=== PATIENT | female | born 1990 | race Caucasian/White ===

== ENCOUNTER → 2017-09-25 | Outpatient (CLI) | payer BC ==
--- NOTE | 2017-09-25 08:08 | US ---
EXAMINATION TYPE: US abdomen complete DATE OF EXAM: 09/25/2017 COMPARISON: NONE CLINICAL HISTORY: Rt Upper Quad Pain, R10.11. Epigastric, RUQ pain radiating into RLQ for 6 months. I ntermittent nausea EXAM MEASUREMENTS: Liver Length: 13.9 cm Gallbladder Wall: 0.3 cm CBD: 0.2 cm Spleen: 12.2 cm Right Kidney: 10.8 x 4.7 x 5.0 cm Left Kidney: 10.5 x 5.5 x 4.1 cm Pancreas: visualized portions appear wnl Liver: appears wnl Gallbladder: no evidence of stones Evidence for sonographic Phillip's sign: no CBD: wnl Spleen: wnl Right Kidney: possible dense echogenic area upper pole = 0.8cm, no evidence of shadowing Left Kidney: no evidence of hydronephrosis Upper IVC: wnl Abd Aorta: wnl The liver is homogenous. The intrahepatic portion of the IVC and proximal abdominal aorta are within normal limits. There is no evidence of cholelithiasis. Common bile duct is unremarkable. The visu alized portions of the pancreas are homogenous. The spleen is unremarkable. Kidneys are symmetric a nd free of hydronephrosis. IMPRESSION: 1. Probable nonobstructing calculus right kidney.
== END | disposition home or self-care (01) ==
LOC: RADUSWWP 06:54
PROVIDERS: ATTEND Family Medicine
DX: R10.11 Right upper quadrant pain (principal)
CPT/HCPCS: 76700

== ENCOUNTER → 2021-05-22 | Outpatient (CLI) | payer BC ==
--- NOTE | 2021-05-22 10:32 | NM ---
EXAMINATION TYPE: NM hepatobiliary w EF DATE OF EXAM: 05/22/2021 COMPARISON: Ultrasound 09/25/2017 HISTORY: Right upper quadrant pain TECHNIQUE: After the intravenous administration of 4.3 mCi Tc 99m Mebrofenin hepatobiliary scintigrap hy is performed. Immediate images post injection. FINDINGS: There is satisfactory initial accumulation of tracer by the liver. The gallbladder is visualized wit hin 6 minutes. The small bowel activity is noted within 32 minutes. At one hour 8 ounces of oral en sure plus is given to mimic CCK and gallbladder ejection fraction is calculated at 57 %, in the piper l range. Therefore there is no scintigraphic evidence of cystic or common bile duct obstruction to s uggest acute cholecystitis or gallbladder dyskinesia. IMPRESSION: Exam is within normal limits.
== END | disposition home or self-care (01) ==
LOC: RADNMMAIN 06:36
PROVIDERS: ATTEND Family Medicine
DX: R10.11 Right upper quadrant pain (principal)
CPT/HCPCS: 78226; A9537

== ENCOUNTER 2022-04-15 07:25 | Day surgery (SDC) | payer BC ==
[2022-04-14 09:55] VITALS: BMI 32.9
[~2022-04-15 07:25] MED LIST: LACTATED RINGERS 1,000 ML IV SCH
[2022-04-15 07:54] VITALS: TEMP 97.8
[2022-04-15] MEDS ORDERED: PROPOFOL 10 MG/ML 20 ML VIAL IV ONE (08:49)
[2022-04-15] MEDS ORDERED: LIDOCAINE 2% INJ 20 MG/ML (2 ML VIAL) ONE (08:49)
[2022-04-15] MEDS ORDERED: MIDAZOLAM 2 MG/2 ML VIAL ONE (08:49)
--- NOTE | 2022-04-15 08:59 | P.PCN ---
Date of Procedure: 04/15/22 Procedure(s) Performed: BRIEF HISTORY: Patient is a 32-year-old, pleasant, white female scheduled for an upper endoscopy as a part of evaluation of intermittent episodes of right upper quadrant abdominal pain for the last 2 years duration. She had ulcerative abdomen and HIDA scan was unremarkable. Recently was started on omeprazole 20 mg daily and heartburn retroflexion continues to have a right upper quadrant abdominal pain and hence scheduled for an upper endoscopy to evaluate further. PROCEDURE PERFORMED: Esophagogastroduodenoscopy with biopsy. PREOPERATIVE DIAGNOSIS: Intermittent episodes of right upper quadrant abdominal pain of 2 years duration. IV sedation per anesthesia. PROCEDURE: After informed consent was obtained, the patient was brought into the endoscopy unit. IV sedation was administered by Anesthesia under continuous monitoring. Initially the Olympus GIF-140 video endoscope was inserted into the mouth. Esophagus intubated without any difficulty. It was gradually advanced into the stomach and duodenum and carefully examined. The bulb and the second part of the duodenum appeared normal. Since of the duodenum were done to rule out celiac disease. The scope at this time was withdrawn to the stomach, adequately insufflated with air, and upon careful examination, mucosa of the antrum, gastritis with mottling of the mucosa and biopsies were done from this area. The body, cardia and the fundus appeared normal. The scope was then withdrawn into the esophagus. The GE junction was located at 40 cm from the incisors. There was once a fissure erosions at the GE junction consistent with LA grade a reflux esophagitis. Rest of the esophagus appeared normal, biopsies were done from the distal esophagus and the patient tolerated the procedure well. IMPRESSION: 1. Mild antral Gastritis. 2. LA grade A reflux esophagitis. RECOMMENDATIONS: The findings of this examination were discussed with the patient as well as a family. She was advised to follow with the biopsy results. Continue with omeprazole 20 mg daily and follow antireflux measures..
[2022-04-15 09:20] VITALS: BP 126/70; PULSE 78; RESP 18
== END 2022-04-15 09:37 | disposition home or self-care (01) ==
LOC: ORWHC2ENDO 07:25
PROVIDERS: ATTEND Internal Medicine Gastroenterology
DX: K21.00 Gastro-esophageal reflux disease with esophagitis, without bleeding (principal); K29.50 Unspecified chronic gastritis without bleeding
CPT/HCPCS: 81025; 88305; 43239; J2250; J2704; J2001

== ENCOUNTER 2022-10-06 02:10 | Emergency (ER) | payer BC ==
[2022-10-06 02:16] VITALS: BP 158/104; PULSE 92; RESP 18; TEMP 98
[2022-10-06] MEDS ORDERED: HYDROmorphone 0.5 MG/0.5 ML SYRINGE IVP STA (02:25)
[2022-10-06] MEDS ORDERED: ONDANSETRON 4 MG/2 ML VIAL IVP STA (02:25)
[2022-10-06] MEDS ORDERED: SODIUM CHLORIDE 0.9% 1,000 ML IV STA (02:25)
[2022-10-06] MEDS ORDERED: KETOROLAC 15 MG/ML 1 ML VIAL IVP STA (02:25)
--- NOTE | 2022-10-06 02:33 | ED ---
General Adult HPI - General Chief complaint: Abdominal Pain Stated complaint: Right side abdominal Pain Time Seen by Provider: 10/06/22 02:22 Source: patient, RN notes reviewed, old records reviewed Mode of arrival: ambulatory Limitations: no limitations - History of Present Illness Initial comments: 32-year-old female who presents for evaluation of sudden onset right-sided upper abdominal pain and flank pain. Patient has remote history of kidney stone. She denies any preceding symptoms. She's had nausea associated with the pain. Pain is right upper abdominal and right flank. - Related Data Home Medications Medication Instructions Recorded Confirmed Etonogestrel [Nexplanon] 68 mg SQ DIRECTED 04/14/22 04/15/22 Hyoscyamine Sulfate [Levsin] 0.125 mg PO TID 04/14/22 04/15/22 Omeprazole [PriLOSEC] 20 mg PO AC-BRKFST 04/14/22 04/15/22 Rimegepant Sulfate [Nurtec Odt] 75 mg PO DAILY PRN 04/14/22 04/15/22 Previous Rx's Medication Instructions Recorded Ibuprofen [Motrin] 600 mg PO Q8HR PRN #24 tab 10/06/22 Ondansetron Odt [Zofran Odt] 4 mg PO Q8HR PRN #10 tab 10/06/22 Tamsulosin [Flomax] 0.4 mg PO DAILY 5 Days #5 cap 10/06/22 Allergies Allergy/AdvReac Type Severity Reaction Status Date / Time codeine Allergy N/V Verified 10/06/22 02:13 Review of Systems ROS Statement: Those systems with pertinent positive or pertinent negative responses have been documented in the HPI. ROS Other: All systems not noted in ROS Statement are negative. Past Medical History Past Medical History: Asthma, GERD/Reflux Additional Past Medical History / Comment(s): IBS SYMPTOMS. MIGRAINES History of Any Multi-Drug Resistant Organisms: None Reported Past Surgical History: Tonsillectomy Additional Past Surgical History / Comment(s): LT CATARACT REMOVED WITH LENS IMPLANT Past Anesthesia/Blood Transfusion Reactions: No Reported Reaction Past Psychological History: No Psychological Hx Reported Smoking Status: Former smoker Past Alcohol Use History: None Reported Past Drug Use History: None Reported - Past Family History Mother Family Medical History: Cancer General Exam Limitations: no limitations General appearance: alert, in no apparent distress Head exam: Present: atraumatic, normocephalic Eye exam: Present: normal appearance, PERRL ENT exam: Present: normal exam Neck exam: Present: normal inspection. Absent: tenderness, meningismus Respiratory exam: Present: normal lung sounds bilaterally. Absent: respiratory distress, wheezes Cardiovascular Exam: Present: regular rate, normal rhythm GI/Abdominal exam: Present: soft. Absent: distended, tenderness, guarding, rebound Extremities exam: Present: normal inspection, normal capillary refill. Absent: pedal edema, calf tenderness Back exam: Present: normal inspection. Absent: CVA tenderness (R), CVA tenderness (L) Neurological exam: Present: alert, oriented X3 Psychiatric exam: Present: normal affect, normal mood Skin exam: Present: warm, dry, intact, normal color Course Vital Signs 10/06/22 02:13 Temperature 98 F Pulse Rate 92 Respiratory 18 Rate Blood Pressure 158/104 O2 Sat by Pulse 98 Oximetry Medical Decision Making - Medical Decision Making Was pt. sent in by a medical professional or institution (, PA, LABEL DESIGNER, urgent care, hospital, or half-way...) When possible be specific @ -No Did you speak to anyone other than the patient for history (EMS, parent, family, police, friend...)? What history was obtained from this source @ -No Did you review nursing and triage notes (agree or disagree)? Why? @ -I reviewed and agree with nursing and triage notes Were old charts reviewed (outside hosp., previous admission, EMS record, old EKG, old radiological studies, urgent care reports/EKG's, half-way records)? Report findings @ -Reviewed previous ultrasound and HIDA scan results Differential Diagnosis (chest pain, altered mental status, abdominal pain women, abdominal pain men, vaginal bleeding, weakness, fever, dyspnea, syncope, headache, dizziness, GI bleed, back pain, seizure, CVA, palpatations, mental health, musculoskeletal)? @ -Differential Abdominal Pain Women: Appendicitis, Cholecystitis, diverticulosis, ischemic bowel, pancreatitis, hep atitis, UTI, gastroenteritis, AAA, incarcerated hernia, bowel obstruction, constipation, inflammatory bowel, hepatitis, peptic ulcer disease, splenic infarction, perforated viscus, vulvitis, ovarian torsion, PID, kidney stone, placenta abruption, this is not meant to be an all-inclusive list ] EKG interpreted by me (3pts min.). @ -As above X-rays interpreted by me (1pt min.). @ -None done CT interpreted by me (1pt min.). @ -CT showing right-sided hydronephrosis and obstructing kidney stone at the right UVJ U/S interpreted by me (1pt. min.). @ -None done What testing was considered but not performed or refused? (CT, X-rays, U/S, labs)? Why? @ -None What meds were considered but not given or refused? Why? @ -None Did you discuss the management of the patient with other professionals (professionals i.e. , PA, LABEL DESIGNER, lab, RT, psych nurse, social service assistant, catastrophe claims supervisor, teacher, probation officer, pillowcase cutter)? Give summary @ -No Was smoking cessation discussed for >3mins.? @ -No Was critical care preformed (if so, how long)? @ -No Were there social determinants of health that impacted care today? How? (Homelessness, low income, unemployed, alcoholism, drug addiction, transportation, low edu. Level, literacy, decrease access to med. care, [facility], rehab)? @ -No Was there de-escalation of care discussed even if they declined (Discuss DNR or withdrawal of care, Hospice)? DNR status @ -No What co-morbidities impacted this encounter? (DM, HTN, Smoking, COPD, CAD, Cancer, CVA, ARF, Chemo, Hep., AIDS, mental health diagnosis, sleep apnea, morbid obesity)? @ -None Was patient admitted / discharged? Hospital course, mention meds given and route, prescriptions, significant lab abnormalities, going to OR and other pertinent info. @ -32-year-old female with sudden onset right sided abdominal pain and flank pain. History suggestive of renal colic. Workup reveals normal CBC, normal CMP, urinalysis shows [address] imaging does confirm obstructing kidney stone on the right. Patient given a urine strainer. Her symptoms are controlled well in the emergency department. She is prescribed Flomax, Zofran, Motrin. She's given urology follow-up. Undiagnosed new problem with uncertain prognosis? @ -No Drug Therapy requiring intensive monitoring for toxicity (Heparin, Nitro, Insulin, Cardizem)? @ -No Were any procedures done? @ -No Diagnosis/symptom? @ -[Obstructing renal stone Acute, or Chronic, or Acute on Chronic? @ -Acute Uncomplicated (without systemic symptoms) or Complicated (systemic symptoms)? @ -Uncomplicated Side effects of treatment? @ -No Exacerbation, Progression, or Severe Exacerbation? @ -No Poses a threat to life or bodily function? How? (Chest pain, USA, DC, pneumonia, PE, COPD, DKA, ARF, appy, cholecystitis, CVA, Diverticulitis, Homicidal, Luna icidal, threat to staff... and all critical care pts) @ -No - Lab Data Result diagrams: 10/06/22 02:10/06/22 02: Lab Results 10/06/22 10/06/22 10/06/22 Range/Units 02: 02: 02:31 WBC 8.2 (3.8-10.6) k/uL RBC 4.91 (3.80-5.40) m/uL Hgb 14.6 (11.4-16.0) gm/dL Hct 41.7 (34.0-46.0) % MCV 84.9 (80.0-100.0) fL MCH 29.7 (25.0-35.0) pg MCHC 34.9 (31.0-37.0) g/dL RDW 13.1 (11.5-15.5) % Plt Count 309 (150-450) k/uL MPV 7.8 Neutrophils % 50 % Lymphocytes % 36 % Monocytes % 8 % Eosinophils % 3 % Basophils % 0 % Neutrophils # 4.1 (1.3-7.7) k/uL Lymphocytes # 3.0 (1.0-4.8) k/uL Monocytes # 0.7 (0-1.0) k/uL Eosinophils # 0.2 (0-0.7) k/uL Basophils # 0.0 (0-0.2) k/uL Sodium (137-145) mmol/L Potassium (3.5-5.1) mmol/L Chloride (98-107) mmol/L Carbon Dioxide (22-30) mmol/L Anion Gap mmol/L BUN (7-17) mg/dL Creatinine (0.52-1.04) mg/dL Est GFR (CKD-EPI)AfAm (>60 ml/min/1.73 sqM) Est GFR (CKD-EPI)NonAf (>60 ml/min/1.73 sqM) Glucose (74-99) mg/dL Calcium (8.4-10.2) mg/dL Total Bilirubin (0.2-1.3) mg/dL AST (14-36) U/L ALT (4-34) U/L Alkaline Phosphatase (38-126) U/L Total Protein (6.3-8.2) g/dL Albumin (3.5-5.0) g/dL Lipase (23-300) U/L Urine Color Light Yellow Urine Appearance Clear (Clear) Urine pH 6.0 (5.0-8.0) Ur Specific [place] 1.009 (1.001-1.035) Urine Protein Negative (Negative) Urine Glucose (UA) Negative (Negative) Urine Ketones Negative (Negative) Urine Blood Small H (Negative) Urine Nitrite Negative (Negative) Urine Bilirubin Negative (Negative) Urine Urobilinogen <2.0 (<2.0) mg/dL Ur Leukocyte Esterase Negative (Negative) Urine RBC 8 H (0-5) /hpf Urine WBC 2 (0-5) /hpf Ur Squamous Epith Cells 2 (0-4) /hpf Urine Mucus Rare H (None) /hpf Urine HCG, Qual Not Detected (Not Detectd) 10/06/22 Range/Units 02:31 WBC (3.8-10.6) k/uL RBC (3.80-5.40) m/uL Hgb (11.4-16.0) gm/dL Hct (34.0-46.0) % MCV (80.0-100.0) fL MCH (25.0-35.0) pg MCHC (31.0-37.0) g/dL RDW (11.5-15.5) % Plt Count (150-450) k/uL MPV Neutrophils % % Lymphocytes % % Monocytes % % Eosinophils % % Basophils % % Neutrophils # (1.3-7.7) k/uL Lymphocytes # (1.0-4.8) k/uL Monocytes # (0-1.0) k/uL Eosinophils # (0-0.7) k/uL Basophils # (0-0.2) k/uL Sodium 140 (137-145) mmol/L Potassium 4.1 (3.5-5.1) mmol/L Chloride 106 (98-107) mmol/L Carbon Dioxide 25 (22-30) mmol/L Anion Gap 9 mmol/L BUN 9 (7-17) mg/dL Creatinine 0.71 (0.52-1.04) mg/dL Est GFR (CKD-EPI)AfAm >90 (>60 ml/min/1.73 sqM) Est GFR (CKD-EPI)NonAf >90 (>60 ml/min/1.73 sqM) Glucose 104 H (74-99) mg/dL Calcium 9.2 (8.4-10.2) mg/dL Total Bilirubin 0.3 (0.2-1.3) mg/dL AST 21 (14-36) U/L ALT 35 H (4-34) U/L Alkaline Phosphatase 69 (38-126) U/L Total Protein 7.2 (6.3-8.2) g/dL Albumin 4.1 (3.5-5.0) g/dL Lipase 168 (23-300) U/L Urine Color Urine Appearance (Clear) Urine pH (5.0-8.0) Ur Specific [place] (1.001-1.035) Urine Protein (Negative) Urine Glucose (UA) (Negative) Urine Ketones (Negative) Urine Blood (Negative) Urine Nitrite (Negative) Urine Bilirubin (Negative) Urine Urobilinogen (<2.0) mg/dL Ur Leukocyte Esterase (Negative) Urine RBC (0-5) /hpf Urine WBC (0-5) /hpf Ur Squamous Epith Cells (0-4) /hpf Urine Mucus (None) /hpf Urine HCG, Qual (Not Detectd) Disposition Clinical Impression: Calculus of kidney Disposition: HOME SELF-CARE Condition: Good Instructions (If sedation given, give patient instructions): Kidney Stones (ED), How to Strain Your Urine (ED) Prescriptions: Tamsulosin [Flomax] 0.4 mg PO DAILY 5 Days #5 cap Ibuprofen [Motrin] 600 mg PO Q8HR PRN #24 tab PRN Reason: Pain Ondansetron Odt [Zofran Odt] 4 mg PO Q8HR PRN #10 tab PRN Reason: Vomiting Is patient prescribed a controlled substance at d/c from ED?: No Referrals: Marie Fragoso III, MD [Primary Care Provider] - 1-2 days Horace Damon MD [STAFF PHYSICIAN] - 1-2 days Time of Disposition: 03:44
[2022-10-06 02:50] LABS: Appearance,Urine Clear (Clear); Bilirubin,Urine Negative (Negative); Blood,Urine Small (Negative); Color,Urine Light Yellow; Glucose,Urine (UA) Negative (Negative); Ketones,Urine Negative (Negative); Leukocyte Esterase,Urine Negative (Negative); Mucus,Urine Rare /hpf; Nitrite,Urine Negative (Negative); Protein,Urine Negative (Negative); RBC,Urine 8 /hpf (0-5); Specific Gravity,Urine 1.009 (1.001-1.035); Squamous Epithelial Cell,Urine 2 /hpf (0-4); Urobilinogen,Urine <2.0 mg/dL (<2.0); WBC,Urine 2 /hpf (0-5)
[2022-10-06 03:27] LABS: Basophils % (A) 0 %; Eosinophils # (A) 0.2 k/uL (0-0.7); Eosinophils % (A) 3 %; HCT 41.7 % (34.0-46.0); HGB 14.6 gm/dL (11.4-16.0); Lymphocytes % (A) 36 %; MCH 29.7 pg (25.0-35.0); MCHC 34.9 g/dL (31.0-37.0); MCV 84.9 fL (80.0-100.0); Mean Platelet Volume 7.8; Monocytes # (A) 0.7 k/uL (0-1.0); Monocytes % (A) 8 %; Neutrophils # (A) 4.1 k/uL (1.3-7.7); Neutrophils % (A) 50 %; Platelet Count 309 k/uL (150-450); RBC 4.91 m/uL (3.80-5.40); RDW 13.1 % (11.5-15.5); WBC 8.2 k/uL (3.8-10.6)
[2022-10-06 03:36] LABS: ALT 35 U/L (4-34); AST 21 U/L (14-36); African American GFR (CKD) >90 (>60 ml/min/1.73 sqM); Albumin 4.1 g/dL (3.5-5.0); Alkaline Phosphatase 69 U/L (38-126); Anion Gap 9 mmol/L; Blood Urea Nitrogen 9 mg/dL (7-17); Calcium 9.2 mg/dL (8.4-10.2); Carbon Dioxide 25 mmol/L (22-30); Chloride 106 mmol/L (98-107); Glucose 104 mg/dL (74-99); Lipase 168 U/L (23-300); Non-African American GFR(CKD) >90 (>60 ml/min/1.73 sqM); Potassium 4.1 mmol/L (3.5-5.1); Sodium 140 mmol/L (137-145); Total Bilirubin 0.3 mg/dL (0.2-1.3); Total Protein 7.2 g/dL (6.3-8.2)
--- NOTE | 2022-10-06 04:52 | CT ---
EXAM: CT Abdomen and Pelvis Without Intravenous Contrast CLINICAL HISTORY: rt flank pain TECHNIQUE: Axial computed tomography images of the abdomen and pelvis without intravenous contrast. CTDI is 15.5 mGy and DLP is 826.7 mGy-cm. This CT exam was performed using one or more of the following dose reduction techniques: automated exposure control, adjustment of the mA and/or kV according to patient size, and/or use of iterative reconstruction technique. COMPARISON: No relevant prior studies available. FINDINGS: Lung bases: Unremarkable. No mass. No consolidation. ABDOMEN: Liver: Unremarkable. Gallbladder and bile ducts: Unremarkable. No calcified stones. No ductal dilation. Pancreas: Unremarkable. No ductal dilation. Spleen: Unremarkable. No splenomegaly. Adrenals: Unremarkable. No mass. Kidneys and ureters: Mild right hydroureteronephrosis with 4 mm obstructing right UVJ calculus. Stomach and bowel: Unremarkable. No obstruction. No mucosal thickening. PELVIS: Appendix: No findings to suggest acute appendicitis. Bladder: Unremarkable. No stones. Reproductive: Unremarkable as visualized. ABDOMEN and PELVIS: Intraperitoneal space: Unremarkable. No free air. No significant fluid collection. Bones/joints: No acute fracture. No dislocation. Soft tissues: Unremarkable. Vasculature: Unremarkable. No abdominal aortic aneurysm. Lymph nodes: Unremarkable. No enlarged lymph nodes. IMPRESSION: Mild right hydroureteronephrosis with 4 mm obstructing right UVJ calculus.
== END 2022-10-06 05:30 | disposition home or self-care (01) ==
LOC: EC 02:10
DX: N13.2 Hydronephrosis with renal and ureteral calculous obstruction (principal); J45.909 Unspecified asthma, uncomplicated; K21.9 Gastro-esophageal reflux disease without esophagitis; Z88.5 Allergy status to narcotic agent; Z87.891 Personal history of nicotine dependence; Z79.899 Other long term (current) drug therapy
CPT/HCPCS: 36415; 80053; 83690; 85025; 81001; 81025; 74176; 99285; 96374; 96375 ×2; 96361; J2405; J1885; J1170

== ENCOUNTER 2023-09-24 15:09 | Inpatient (IN) | payer BC ==
[2023-09-24] MEDS ORDERED: miSOPROStoL 200 MCG TAB PO PRN (15:45)
[2023-09-24] MEDS ORDERED: OXYTOCIN 10 UNIT/ML 1 ML VIAL IM PRN (15:45)
[2023-09-24] MEDS ORDERED: TERBUTALINE 1 MG/ML VIAL SQ PRN (15:45)
[2023-09-24] MEDS ORDERED: CARBOPROST TROMETHAMINE 250 MCG/ML 1 ML AMP IM PRN (15:45)
[2023-09-24] MEDS ORDERED: LIDOCAINE 0.5% (PF) 5 MG/ML (50 ML SDV) SQ PRN (15:45)
[2023-09-24] MEDS ORDERED: TRANEXAMIC 1,000 MG/100ML-NACL 1,000 MG in EMPTY BAG 1 BAG IV PRN (15:45)
[2023-09-24] MEDS ORDERED: OXYTOCIN 30 UNITS/500 ML NS 30 UNIT in SALINE 1 500ML.BAG IV SCH (15:45)
[2023-09-24] MEDS ORDERED: METHYLERGONOVINE 0.2 MG/ML 1 ML AMP IM PRN (15:45)
[2023-09-24 16:03] LABS: Basophils % (A) 0 %; Eosinophils # (A) 0.1 k/uL (0-0.7); Eosinophils % (A) 1 %; HCT 38.2 % (34.0-46.0); HGB 12.3 gm/dL (11.4-16.0); Lymphocytes # (A) 1.4 k/uL (1.0-4.8); Lymphocytes % (A) 15 %; MCH 28.4 pg (25.0-35.0); MCHC 32.3 g/dL (31.0-37.0); Mean Platelet Volume 10.5; Monocytes # (A) 0.5 k/uL (0-1.0); Monocytes % (A) 6 %; Neutrophils # (A) 6.9 k/uL (1.3-7.7); Neutrophils % (A) 76 %; Platelet Count 267 k/uL (150-450); RBC 4.34 m/uL (3.80-5.40); RDW 13.7 % (11.5-15.5); WBC 9.1 k/uL (3.8-10.6)
[2023-09-24 16:12] LABS: ALT 14 U/L (4-34); AST 19 U/L (14-36); African American GFR (CKD) >90 (>60 ml/min/1.73 sqM); Blood Urea Nitrogen 15 mg/dL (7-17); LDH 189 U/L (120-246); Magnesium 1.7 mg/dL (1.6-2.3); Non-African American GFR(CKD) >90 (>60 ml/min/1.73 sqM); Uric Acid 5.1 mg/dL (3.7-7.4)
[2023-09-24] MEDS: OXYTOCIN 30 UNITS/500 ML NS 30 UNIT in SALINE 1 500ML.BAG IV SCH (16:21)
[2023-09-24 16:27] LABS: INR 0.8 (<1.2); Partial Thromboplastin Time 22.9 sec (22.0-30.0); Prothrombin Time 9.5 sec (10.0-12.5)
[2023-09-24] MEDS: LACTATED RINGERS 1,000 ML IV SCH (16:27)
[2023-09-24 16:59] LABS: Appearance,Urine Cloudy (Clear); Bacteria,Urine Rare /hpf; Bilirubin,Urine Negative (Negative); Blood,Urine Negative (Negative); Color,Urine Yellow; Glucose,Urine (UA) Negative (Negative); Hyaline Casts,Urine 1 /lpf (0-2); Ketones,Urine Negative (Negative); Leukocyte Esterase,Urine Small (Negative); Mucus,Urine Few /hpf; Nitrite,Urine Negative (Negative); Protein,Urine 2+ (Negative); RBC,Urine 2 /hpf (0-5); Specific Gravity,Urine 1.026 (1.001-1.035); Squamous Epithelial Cell,Urine 16 /hpf (0-4); Urobilinogen,Urine <2.0 mg/dL (<2.0); WBC,Urine 4 /hpf (0-5)
[2023-09-24] MEDS ORDERED: hydrALAZINE HCL 20 MG/ML 1 ML VIAL IVP PRN (17:03)
[2023-09-24] MEDS ORDERED: LABETALOL 5 MG/ML VIAL MDV IVP PRN ×2 (17:03)
[2023-09-24 17:04] LABS: Creatinine,Urine Random 200.8 mg/dL; Protein/Creatinine Ratio,Urine 0.971
[2023-09-24] MEDS ORDERED: NALBUPHINE 10 MG/ML (10 ML MDV) IV PRN (17:11)
--- NOTE | 2023-09-24 17:18 | P.HPOB ---
History of Present Illness H&P Date: 09/24/23 Chief Complaint: 37-3/7 weeks, -induced hypertension The patient is a 33-year-old 1 para 0 admitted at 37-3/7 weeks as established by last menstrual period and confirmed by 8-week ultrasound. She is admitted from the office secondary to significantly increased blood pressures which have remained quite labile here on labor and delivery. She was diagnosed with -induced hypertension beginning at approximately 26 to 28 weeks and was ultimately started on labetalol 100 mg twice daily which controlled her blood pressures until presentation today. She does report that she has had a headache for the last 2 days but feels that this is a common migraine for her. She was additionally found to have the fetus growing greater than 99th percentile by ultrasound 1 week ago. Given her potential secondary symptoms and the lability of her blood pressures along with increasing swelling at more than 37 weeks, the decision was made to proceed with delivery. On labor delivery, all signs are reassuring with a category 1 heart rate tracing. Group B strep status is negative. Obstetrical history: 1 para 0 with current statistics listed in history of present illness. EDC of 10/12/2023 was established by last menstrual period and confirmed by 8-week ultrasound. Laboratory workup demonstrates a blood type of A+ with a negative antibody screen. Rubella status is immune. The remainder of the laboratory workup was within normal limits. 1 hour Glucola done and in the early second trimester was normal and was found to be elevated at the end of the second trimester. This was followed by a normal 3-hour glucose tolerance test. Group B strep status is negative. Gynecologic history: Unremarkable with no history of any infections to include STDs. Review of Systems Review of systems is confined to history of present illness. Past Medical History Past Medical History: Asthma, GERD/Reflux Additional Past Medical History / Comment(s): IBS SYMPTOMS. MIGRAINES History of Any Multi-Drug Resistant Organisms: None Reported Past Surgical History: Tonsillectomy Additional Past Surgical History / Comment(s): LT CATARACT REMOVED WITH LENS IMPLANT Past Anesthesia/Blood Transfusion Reactions: No Reported Reaction Past Psychological History: ADD/ADHD Smoking Status: Former smoker Past Alcohol Use History: None Reported Additional Past Alcohol Use History / Comment(s): QUIT SMOKING 2014 Past Drug Use History: None Reported Additional Drug Use History / Comment(s): LAST USED [place]IJ[place] 3 MONTHS AGO - Past Family History Mother Family Medical History: Cancer Medications and Allergies Home Medications Medication Instructions Recorded Confirmed Type Aspirin [[place]] 81 mg PO DAILY 09/24/23 09/24/23 History Labetalol [Trandate] 100 mg PO BID 09/24/23 09/24/23 History Vit No.179/Iron/Folic 1 tab PO DAILY 09/24/23 09/24/23 History [ Tablet] Allergies Allergy/AdvReac Type Severity Reaction Status Date / Time celecoxib [From Celebrex] Allergy Abdominal Verified 09/24/23 15:38 Pain codeine Allergy N/V Verified 10/06/22 02:13 Exam Vital Signs Temp Pulse Resp BP Pulse Ox 09/24/23 15:36 98.5 F 98 16 158/101 100 Intake and Output 09/24/23 09/24/23 09/24/23 06:59 14:59 22:59 Other: Weight 111.584 kg In general, this is a well-developed, well-nourished white female in no acute distress. Her heart has a regular rhythm and rate without murmur. Her lungs are clear to auscultation bilaterally in all miller. Her abdomen is gravid, nondistended, has normal active bowel sounds, soft, nontender, and without any palpable masses aside from the uterine fundus. Her extremities are without any cyanosis, clubbing but there is 1+ bilateral lower extremity edema present. They are nontender to palpation bilaterally. Digital cervical examination demonstrates her cervix to be 2+ centimeters dilated, 60% effaced, the vertex and presentation at -2 station. Artificial rupture of membranes is carried out demonstrating clear fluid. Results Result Diagrams: 09/24/23 15:30 09/24/23 15:30 Abnormal Lab Results - Last 24 Hours (Table) 09/24/23 09/24/23 Range/Units 15:30 15:30 PT 9.5 L (10.0-12.5) sec Fibrinogen 568 H (200-500) mg/dL Urine Appearance Cloudy H (Clear) Urine Protein 2+ H (Negative) Ur Leukocyte Esterase Small H (Negative) Ur Squamous Epith Cells 16 H (0-4) /hpf Urine Bacteria Rare H (None) /hpf Urine Mucus Few H (None) /hpf Assessment and Plan (1) induced hypertension Current Visit: Yes Status: Acute Code(s): O13.9 - GESTATIONAL HTN W/O SIGNIFICANT PROTEINURIA, UNSP TRIMESTER SNOMED Code(s): 92743481 (2) Term Current Visit: Yes Status: Acute Code(s): Z34.90 - ENCNTR FOR SUPRVSN OF NORMAL , UNSP, UNSP TRIMESTER SNOMED Code(s): 59279920 Plan: Pitocin augmentation has been started and she has undergone artificial rupture of membranes. Given her blood pressure lability, the labetalol protocol will be put into place. There is consideration for magnesium sulfate prophylaxis if blood pressures remain significantly labile despite the antihypertensive therapy. The patient left close maternal and surveillance and expectant management will be practiced. Given the greater than 99th percentile estimated weight, close attention will be paid to the labor curve. The patient has already expressed that she has no concern over proceeding with section if it is deemed indicated. She is a good candidate for either IV, epidural, or nitrous analgesia, whichever she may choose.
[2023-09-24] MEDS: LABETALOL 5 MG/ML VIAL MDV IVP PRN (17:19)
[2023-09-24] MEDS ORDERED: ROPIVACAINE 5 MG/ML 30 ML VIAL ONE (22:29)
[2023-09-24] MEDS ORDERED: fentaNYL (PF) 50 MCG/ML 5 ML AMP ONE (22:29)
[2023-09-24] MEDS ORDERED: SODIUM CHLORIDE 0.9% 250 ML BAG ONE (22:29)
[2023-09-25] MEDS ORDERED: diphenhydrAMINE 50 MG CAP PO PRN (05:00)
[2023-09-25] MEDS ORDERED: HYDROcodone/APAP 7.5-325MG 1 EACH TAB PO PRN (05:00)
[2023-09-25] MEDS ORDERED: BENZOCAINE/MENTHOL SPRAY 1 GM/SPRAY AEROSOL TOPICAL PRN (05:00)
[2023-09-25] MEDS ORDERED: HYDROcodone/APAP 5-325MG 1 EACH TAB PO PRN (05:00)
[2023-09-25] MEDS ORDERED: SIMETHICONE 80 MG CHEWABLE PO PRN (05:00)
[2023-09-25] MEDS ORDERED: diphenhydrAMINE 50 MG/ML 1 ML VIAL IVP PRN ×2 (05:00)
[2023-09-25] MEDS ORDERED: HYDROCORTISONE 2.5% RECTAL CREAM 30 GM TUBE RECTAL PRN (05:00)
[2023-09-25] MEDS ORDERED: OXYTOCIN 30 UNITS/500 ML NS 30 UNIT in SALINE 1 500ML.BAG IV SCH (05:00)
[2023-09-25] MEDS ORDERED: ZOLPIDEM 5 MG TAB PO PRN (05:00)
[2023-09-25] MEDS ORDERED: diphenhydrAMINE 25 MG CAP PO PRN (05:00)
[2023-09-25] MEDS ORDERED: LANOLIN CREAM 1 GM TUBE TOPICAL PRN (05:00)
--- NOTE | 2023-09-25 05:06 | P.PROBDLV ---
Vaginal Delivery Note - . Vaginal Delivery Note: The patient is a 33-year-old 1 para 0 admitted at 37-3/7 weeks for induction of labor secondary to increasingly labile blood pressures found in the office to be in the range of 158/95 which was a fairly significant change from previous blood pressures. Similar blood pressures were found when she was sent to labor and delivery for serial blood pressure management and labs. Upon further questioning, the patient reported that she failed to take her morning do se of labetalol. Her was essentially uncomplicated aside from the samaritan of -induced hypertension beginning at approximately 28 weeks of . She ultimately was placed on labetalol 100 mg twice a day which managed her blood pressures until presentation yesterday. She did have reassuring testing on a weekly basis from 32 weeks. She additionally was found by ultrasound at 36 weeks to have a baby estimated to be in the 99th percentile or greater. Given the suspicion of a potentially large baby as well as the labile blood pressures and possible early preeclampsia, the decision was made to proceed with delivery. Laboratories done on labor and delivery failed to demonstrate any abnormal findings. The patient had Pitocin augmentation started and underwent artificial rupture of membranes. The labetalol protocol was started and her pressures normalized with a single dose of labetalol 20 mg IV. There remained [place] through the entire labor process. She made progress to the active phase of labor and had an epidural catheter placed for analgesia. She then progressed steadily through the active phase of labor to complete and was allowed to labor down for some time. She pushed over the course of approximately an hour and 15 minutes to a normal spontaneous vaginal delivery of a viable 8 pound 0 ounce baby boy with Apgars of 9 at 1 minute and 9 at 5 minutes delivered in the direct occiput anterior position. The placenta was delivered spontaneously, intact, and grossly normal with a grossly normal three- vessel cord inserted approximately 3 to 4 cm from the margin of the placental disc. There were no lacerations of the perineum, vagina, or cervix. Estimated blood loss for the case was approximately 200 mL. There were no complications. All sponge, instrument, and needle counts were correct. Both mother and are resting comfortably in recovery.
[2023-09-25] MEDS: LABETALOL 100 MG TAB PO SCH (09:11)
[2023-09-25] MEDS: SENNOSIDES-DOCUSATE SODIUM 1 EACH TAB PO SCH (09:12)
[2023-09-25] MEDS: IBUPROFEN 600 MG TAB PO PRN (16:19)
[2023-09-25] MEDS: ACETAMINOPHEN TAB 325 MG TAB PO PRN (20:45)
[2023-09-26 07:19] LABS: Basophils % (A) 0 %; Eosinophils # (A) 0.2 k/uL (0-0.7); Eosinophils % (A) 3 %; HCT 33.2 % (34.0-46.0); HGB 10.8 gm/dL (11.4-16.0); Lymphocytes # (A) 1.9 k/uL (1.0-4.8); Lymphocytes % (A) 25 %; MCH 28.9 pg (25.0-35.0); MCHC 32.4 g/dL (31.0-37.0); MCV 89.2 fL (80.0-100.0); Mean Platelet Volume 11.2; Monocytes # (A) 0.4 k/uL (0-1.0); Monocytes % (A) 6 %; Neutrophils # (A) 4.8 k/uL (1.3-7.7); Neutrophils % (A) 63 %; Platelet Count 208 k/uL (150-450); RBC 3.72 m/uL (3.80-5.40); RDW 14.2 % (11.5-15.5); WBC 7.5 k/uL (3.8-10.6)
--- NOTE | 2023-09-26 09:13 | P.DS ---
Providers Date of admission: 09/24/23 15:09 Expected date of discharge: 09/26/23 Attending physician: Benji Bush Primary care physician: Stated None - Discharge Diagnosis(es) (1) Large for gestational age fetus Current Visit: Yes Status: Acute (2) induced hypertension Current Visit: Yes Status: Acute (3) Term Current Visit: Yes Status: Acute (4) Normal spontaneous vaginal delivery Current Visit: Yes Status: Acute Hospital Course: This is a 33-year-old 1 now para 1Woman who is admitted at 37-3/7 weeks gestation for induction of labor secondary to -induced hypertension. Her blood pressures have been controlled with labetalol in the setting until the day of admission at which time her blood pressures were noted to be significantly elevated in the outpatient setting. Her cervix was favorable she was therefore admitted for delivery. Estimated weight was greater than the 99th percentile by recent ultrasound. Please see the admission history and physical for details. Following admission the patient underwent a Pitocin induction of labor with artificial rupture of membranes.She received an epidural anesthetic. She did require IV labetalol 1. She went on to deliver a liveborn male over an intact perineum with Apgars of 9 at 1 minute and 9 at 5 minutes weighing 8 lbs. 0 oz. Please see the delivery summary for details. Her course was unremarkable. Her blood pressures ranged from the 130s and 140s over 80s without any additional symptoms. Her day #1 laboratory data was within normal limits. She did have moderate lochia and 3+ bilateral lower extremity edema which was consistent with admission. She was breast-feeding successfully. Her by mouth labetalol was resumed and she was discharged home on day #1 with routine instructions for care and follow-up. She will return to the office in 1 week for blood pressure check. Patient Condition at Discharge: Good Plan - Discharge Summary New Discharge Prescriptions: New Ibuprofen [Motrin] 600 mg PO Q6HR PRN tab PRN Reason: Mild Pain (Scale 1 To 3) Acetaminophen Tab [Tylenol] 650 mg PO Q4HR PRN tab PRN Reason: Mild Pain Or Fever >= 100.5 Continue Labetalol [Trandate] 100 mg PO BID Discontinued Aspirin [[place]] 81 mg PO DAILY No Action Vit No.179/Iron/Folic [ Tablet] 1 tab PO DAILY Discharge Medication List Labetalol [Trandate] 100 mg PO BID 09/24/23 [History] Vit No.179/Iron/Folic [ Tablet] 1 tab PO DAILY 09/24/23 [History] Acetaminophen Tab [Tylenol] 650 mg PO Q4HR PRN tab 09/26/23 [Rx] Ibuprofen [Motrin] 600 mg PO Q6HR PRN tab 09/26/23 [Rx] Follow up Appointment(s)/Referral(s): Benji Bush MD [STAFF PHYSICIAN] - 1 Week (Blood pressure check) Activity/Diet/Wound Care/Special Instructions: Follow-up in the office in 1 week for blood pressure check and 6 weeks . Monitor home blood pressures and contact the office with systolic blood pressures greater than 180 and/or diastolic blood pressures greater than 100 Call with any concerning signs or symptoms including heavy vaginal bleeding,Headaches, visual changes, severe abdominal pain, fever greater than 101, swelling or redness of the lower extremities, foul vaginal discharge, or signs of depression. Nothing in the vagina for 6 weeks after delivery, specifically no intercourse. Discharge Disposition: HOME SELF-CARE
[2023-09-26] MEDS: NIFEdipine XL 30 MG TAB.ER.24 PO SCH (10:49)
[2023-09-26 21:00] VITALS: RESP 16
[2023-09-27 10:09] VITALS: BP 138/93; PULSE 91; TEMP 98.1
== END 2023-09-27 10:30 | disposition home or self-care (01) | DRG 807 ==
LOC: 4FBP 15:09
PROVIDERS: ADMIT Obstetrics & Gynecology; ATTEND Obstetrics & Gynecology
PROC: 10E0XZZ Delivery of Products of Conception, External Approach (ICD-10-PCS; principal; 2023-09-25)
PROC: 10907ZC Drainage of Amniotic Fluid, Therapeutic from Products of Conception, Via Natural or Artificial Opening (ICD-10-PCS; principal; 2023-09-25)
PROC: 3E033VJ Introduction of Other Hormone into Peripheral Vein, Percutaneous Approach (ICD-10-PCS; principal; 2023-09-25)
DX: O13.4 Gestational [pregnancy-induced] hypertension without significant proteinuria, complicating childbirth (principal); O36.63X0 Maternal care for excessive fetal growth, third trimester, not applicable or unspecified; O99.344 Other mental disorders complicating childbirth; O99.52 Diseases of the respiratory system complicating childbirth; J45.909 Unspecified asthma, uncomplicated; F90.9 Attention-deficit hyperactivity disorder, unspecified type; Z3A.37 37 weeks gestation of pregnancy; Z87.891 Personal history of nicotine dependence; Z79.82 Long term (current) use of aspirin; Z37.0 Single live birth; Z88.6 Allergy status to analgesic agent; Z88.5 Allergy status to narcotic agent; Z28.310 Unvaccinated for COVID-19; Z28.21 Immunization not carried out because of patient refusal
CPT/HCPCS: 81001; 82565; 82570; 83615; 83735; 84156; 84450; 84460; 84520; 84550; 85025; 85384; 85610; 85730; 86850; 86900; 86901